=== PATIENT | female | born 1995 | race American Indian/Alaskan Native ===

== ENCOUNTER 2023-01-03 22:55 | Emergency (ER) | payer OTHER ==
[~2023-01-03] VITALS: Ht 165.1 cm; Wt 66.7 kg
[~2023-01-03 22:55] MED LIST: NAPROXEN500 MG PO; NORCO 5-325 TA1 EACH PO
[2023-01-03] MEDS ORDERED: CEPHALEXIN500 M1 PO (23:44)
[2023-01-03 23:55] VITALS: BP 130/81
== END 2023-01-03 23:57 | disposition home or self-care (01) ==
LOC: ED 22:55
DX: S80.861A Insect bite (nonvenomous), right lower leg, initial encounter (principal); W57.XXXA Bitten or stung by nonvenomous insect and other nonvenomous arthropods, initial encounter; F17.200 Nicotine dependence, unspecified, uncomplicated
CPT/HCPCS: 99281; A9270

== ENCOUNTER 2023-03-24 18:22 | Emergency (ER) | payer OTHER, MEDICAID ==
[~2023-03-24] VITALS: Ht 165.1 cm; Wt 65.8 kg
--- OUTSIDE RECORDS SUMMARY | ~2023-03-24 | XMS | Continuity of Care Document ---
Demographics + + + | Address | [address] | | | [place] [address] | + + + | Preferred Language | Unknown | + + + | Marital Status | Never | + + + | Confucianist Affiliation | Unknown | + + + | Race | or | + + + | Ethnic Group | Not or | + + + Author + + + | Author | [facility] | + + + | Organization | [facility] | + + + | Address | [address] | | | [place] [address] | + + + | Phone | | + + + Care Team Providers + + + + | Care Hot Dip Tinning Supervisor Name | Role | Phone | + + + + Unavailable | Unavailable | + + + + Unavailable | Unavailable | + + + + Allergies No information. Encounters No information. Functional Status No information. Immunizations No information. Medications + + + + | date | description | facility | + + + + | 2023-01-03 00:00 | CEPHALEXIN | [facility] | + + + + | 2013-07-02 00:00 | NAPROXEN | [facility] | + + + + | 2013-07-02 00:00 | HYDROCODONE | [facility] | | | BIT/ACETAMINOPHEN | | + + + + Problems + + + + | date | description | facility | + + + + | 2016-07-30 00:00 | Vaginal bleeding | [facility] | + + + + | 2016-10-01 00:00 | Encounter for medical | [facility] | | | clearance for patient hold | | + + + + | 2023-01-03 00:00 | Bug bite | [facility] | + + + + | 2023-01-03 22:58 | NICOTINE DEPENDENCE, | [facility] | | | UNSPECIFIED, UNCOMPLICATED | | + + + + | 2023-01-03 22:58 | INSECT BITE (NONVENOMOUS), | [facility] | | | RIGHT LOWER LEG, INIT | | | | ENCNTR | | + + + + | 2023-01-03 22:58 | BIT/STUNG BY NONVENOM | [facility] | | | INSECT OTH NONVENOM ARTHRO | | + + + + Procedures No information. Results/Labs No information. Social History No information. Vital Signs + + +---------+---------+ | date | measurement | value | units | + + +---------+---------+ | 2023-01-03 00:00 | BMI | 24.5 | kg/m2 | + + +---------+---------+ | 2023-01-03 00:00 | BP_diastolic | 81 | mmHg | + + +---------+---------+ | 2023-01-03 00:00 | BP_systolic | 130 | mmHg | + + +---------+---------+ | 2023-01-03 00:00 | heart_rate | 105 | /min | + + +---------+---------+ | 2023-01-03 00:00 | height_metric | 165.1 | cm | + + +---------+---------+ | 2023-01-03 00:00 | height_standard | 65 | in | + + +---------+---------+ | 2023-01-03 00:00 | o2_saturation | 98 | % | + + +---------+---------+ | 2023-01-03 00:00 | respiration_rate | 14 | /min | + + +---------+---------+ | 2023-01-03 00:00 | temperature_metric | 37.06 | C | | | | | | + + +---------+---------+ | 2023-01-03 00:00 | | 98.7 | F | | | temperature_standar | | | | | d | | | + + +---------+---------+ | 2023-01-03 00:00 | weight_metric | 66.68 | kg | + + +---------+---------+ | 2023-01-03 00:00 | weight_standard | 147 | lb | + + +---------+---------+"
[~2023-03-24 18:22] MED LIST changes: +CEPHALEXIN500 M1 PO
[2023-03-24] MEDS ORDERED: AMOX TR-K CLV1 EAC1 PO (18:54)
[2023-03-24 19:09] VITALS: BP 00/00
== END 2023-03-24 19:09 | disposition home or self-care (01) ==
LOC: ED 18:22
DX: S51.852A Open bite of left forearm, initial encounter (principal); S01.411A Laceration without foreign body of right cheek and temporomandibular area, initial encounter; S01.111A Laceration without foreign body of right eyelid and periocular area, initial encounter; S61.216A Laceration without foreign body of right little finger without damage to nail, initial encounter; F17.200 Nicotine dependence, unspecified, uncomplicated; W54.0XXA Bitten by dog, initial encounter; Z65.3 Problems related to other legal circumstances
CPT/HCPCS: 99283

== ENCOUNTER 2025-02-17 16:35 | Emergency (ER) | payer OTHER ==
[~2025-02-17] VITALS: Ht 165.1 cm; Wt 63.9 kg
[~2025-02-17 16:35] MED LIST changes: +AMOX TR-K CLV1 EAC1 PO
[2025-02-17] MEDS ORDERED: SODIUM CHLORIDE 0.9% 1,000 ML IV ONE (19:15)
[2025-02-17 20:33] VITALS: BP 103/67
== END 2025-02-17 20:36 | disposition other institution, planned readmission (95) ==
LOC: ED 16:35
DX: T40.412A Poisoning by fentanyl or fentanyl analogs, intentional self-harm, initial encounter (principal); T43.652A Poisoning by methamphetamines intentional self-harm, initial encounter; F17.200 Nicotine dependence, unspecified, uncomplicated
CPT/HCPCS: 99284; J7030